=== PATIENT | female | born 1960 | race Caucasian/White ===

== ENCOUNTER 2019-02-22 08:47 | Emergency (ER) | payer OTHER, MEDICARE ==
[~2019-02-22] VITALS: Ht 160 cm; Wt 68.2 kg
[2019-02-22 09:13] VITALS: BP 106/71
== END 2019-02-22 09:20 | disposition home or self-care (01) ==
LOC: FSED 08:47
DX: L03.115 Cellulitis of right lower limb (principal); M32.9 Systemic lupus erythematosus, unspecified; F17.210 Nicotine dependence, cigarettes, uncomplicated
CPT/HCPCS: 99282